=== PATIENT | female | born 1950 | race Hispanic/Latino ===

== ENCOUNTER → 2017-04-16 | Outpatient (CLI) | payer OTHER | END | disposition home or self-care (01) | LOC: SHCH 08:27 | PROVIDERS: ATTEND Internal Medicine Cardiovascular Disease | DX: I42.9 Cardiomyopathy, unspecified (principal) | CPT/HCPCS: 93306 ==

== ENCOUNTER 2022-01-14 15:10 | Emergency (ER) | payer OTHER ==
[~2022-01-14] VITALS: Ht 160 cm; Wt 77.1 kg
[2022-01-14] MEDS ORDERED: ACET-66 PO (17:09)
[2022-01-14 17:27] LABS: APPEARANCE,URINE CLEAR (CLEAR); BILIRUBIN,URINE NEGATIVE (NEGATIVE); COLOR,URINE LIGHT-YELLOW (YELLOW); GLUCOSE, URINE (UA) NEGATIVE (NEGATIVE); KETONES,URINE NEGATIVE (NEGATIVE); LEUKOCYTE ESTERASE ,URINE 75 Leu/uL (NEGATIVE); NITRATE,URINE NEGATIVE (NEGATIVE); OCCULT BLOOD,URINE NEGATIVE (NEGATIVE); PH,URINE 6.5 (5.0-8.0); PROTEIN,URINE NEGATIVE (NEGATIVE); UROBILINOGEN,URINE 0.2 mg/dL (0.2-1.0)
[2022-01-14 17:38] LABS: BACTERIA,URINE FEW /HPF (None Seen); MUCUS,URINE RARE LPF (None Seen); SQUAMOUS EPITHELIAL CELL,UR RARE /HPF (0-2); WBC,URINE 26-50 /HPF (0-1)
[2022-01-14] MEDS ORDERED: CEPH500B PO (17:40)
[2022-01-14 17:55] VITALS: BP 138/71
== END 2022-01-14 17:56 | disposition home or self-care (01) ==
LOC: EDH 15:10
DX: R51.9 Headache, unspecified (principal); M25.511 Pain in right shoulder; E78.00 Pure hypercholesterolemia, unspecified; Z20.822 Contact with and (suspected) exposure to COVID-19; Z86.73 Personal history of transient ischemic attack (TIA), and cerebral infarction without residual deficits; W01.0XXA Fall on same level from slipping, tripping and stumbling without subsequent striking against object, initial encounter; Y93.89 Activity, other specified; Y92.89 Other specified places as the place of occurrence of the external cause; Y99.8 Other external cause status
CPT/HCPCS: 99285; 70450; 87635; 87088; 87880; 87804 ×2; 81001; 73030; 72125; C9803

== ENCOUNTER → 2022-05-07 | Outpatient (CLI) | payer OTHER ==
[~2022-05-07] MED LIST: ACET-66 PO; CEPH500B PO
[2022-05-07 13:05] LABS: CREATININE 0.8 mg/dL (0.5-1.5); POTASSIUM 4.4 mmol/L (3.5-5.1)
== END | disposition home or self-care (01) ==
LOC: LAB 09:05
PROVIDERS: ATTEND Internal Medicine Cardiovascular Disease
DX: I10 Essential (primary) hypertension (principal)
CPT/HCPCS: 36415; 80048

== ENCOUNTER → 2022-05-28 | Outpatient (CLI) | payer OTHER | END | disposition home or self-care (01) | LOC: RAH 11:03 | PROVIDERS: ATTEND Family Medicine | DX: I65.22 Occlusion and stenosis of left carotid artery (principal); Z86.73 Personal history of transient ischemic attack (TIA), and cerebral infarction without residual deficits | CPT/HCPCS: 93880 ==

== ENCOUNTER → 2022-06-05 | Outpatient (CLI) | payer OTHER | END | disposition home or self-care (01) | LOC: SHCH 08:35 | PROVIDERS: ATTEND Internal Medicine Cardiovascular Disease | DX: I11.9 Hypertensive heart disease without heart failure (principal); R07.9 Chest pain, unspecified; R06.09 Other forms of dyspnea; R42 Dizziness and giddiness; E78.5 Hyperlipidemia, unspecified; Z95.810 Presence of automatic (implantable) cardiac defibrillator | CPT/HCPCS: 93306 ==

== ENCOUNTER 2023-01-01 19:36 | Emergency (ER) | payer OTHER ==
[~2023-01-01] VITALS: Ht 160 cm; Wt 78.0 kg
[2023-01-01] MEDS ORDERED: LIDO700A30 TP (22:07)
[2023-01-01] MEDS ORDERED: MELO5CAP3 PO (22:07)
[2023-01-01] MEDS ORDERED: ACET-2893 PO (22:08)
[2023-01-01] MEDS ORDERED: KETOROLAC 15MG/ML VIAL (15MG/ML) IM ONE (22:30)
[2023-01-01] MEDS ORDERED: LIDOCAINE 4% ADH..PATCH TP ONE ×2 (22:37→23:00)
[2023-01-01 22:45] VITALS: BP 124/75; PULSE 69; RESP 16; O2SAT 98
== END 2023-01-01 22:50 | disposition home or self-care (01) ==
LOC: EDH 19:36
DX: M19.072 Primary osteoarthritis, left ankle and foot (principal); M77.9 Enthesopathy, unspecified; E78.00 Pure hypercholesterolemia, unspecified; I10 Essential (primary) hypertension; Z79.1 Long term (current) use of non-steroidal anti-inflammatories (NSAID); Z86.73 Personal history of transient ischemic attack (TIA), and cerebral infarction without residual deficits; Z95.810 Presence of automatic (implantable) cardiac defibrillator
CPT/HCPCS: 99283; 73610; 96372; J1885

== ENCOUNTER → 2024-11-21 | Outpatient (CLI) | payer OTHER ==
[~2024-11-21] MED LIST changes: +ACET-3797 PO; +LIDO700A30 TP; +MELO5CAP3 PO; +PERFLUTREN PROTEIN-A MICROSPHR 0.22 MG/ML VIAL IV ONE
--- NOTE | 2024-11-21 22:32 | HMCSR ---
APPROVED REPORT EXAM: Two-dimensional and M-mode echocardiogram with Doppler and color Doppler with contrast INDICATION ICD: I10.0 Essential (primary) Hypertension, I42.9, I49.3 Contrast Details Agent/Amount Used: Optison 3mL 2D Dimensions RVDd3.4 cmLVEF(%)50.1 (>50%)LVED Vol(simp.)170.0 mL IVSd0.6 (0.7-1.1cm)FS(%)25 %LVES Vol(simp.)84.0 mL LVDd4.8 (3.8-5.6cm)LA (2D)3.8 (1.6-4.0cm)LVEF(%, simp.)51 % PWd0.9 (0.7-1.1cm)Ao Root(2D)2.8 (2.0-3.7cm)LA ESV INDEX (BP)31.53 mL/m2 IVSs0.9 cmLVOT diam2.1 (1.8-2.4cm) LVDs3.6 (2.5-4.0cm) PWs1.2 cm M-Mode Dimensions EPSS0.9 cm LA (MM)4.2 (1.6-4.0cm) Ao Root(MM)2.8 (2.0-3.7cm) Aortic Valve AoV Vmax1.1 m/Nina Peak GR5.1 mmHgLVOT Vmax0.9 m/s AoV VTI0.3 mAo Mean GR3.1 mmHgLVOT VTI0.20 m DANTE (VMAX)2.71 cm2AVA (VTI) 2.5 cm2 Mitral Valve MV E Vmax67.6 cm/sDECEL Mnqp744 ms MV A Vmax69.9 cm/sP 1/2 T60 ms E/A ratio1.0MVA (PHT)3.7 cm2 TDI E/E' Khgjln06.4E/E' Lateral8.5 Medial E' Peak V5.93 cm/sLateral E' Peak V7.92 cm/s Pulmonary Valve PV Vmax0.7 m/sPV VTI0.16 mPV Mean GR1.0 mmHg PV Peak GR1.8 mmHg Tricuspid Valve TR Vmax2.4 m/sRAP (EST) 3 dqGhWXGQ53.7 mmHg TR Peak GR24.7 mmHg Left Ventricle The left ventricle is normal size. 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 Echo c ontrast agent shows slow swirling and trabeculations at apex, with increased risk of thromboembolizat ion, consider lifelong anticoagulation. There is normal left ventricular wall thickness. LVEF is mild moderately depressed at 40%. Indeterminate diastolic dysfunction. Right Ventricle The right ventricle is normal size. The right ventricular systolic function is normal. Device lead is present in the right ventricle. Atria The left atrium size is normal. The right atrium size is normal. Aortic Valve Aortic valve is trileaflet and opens well. Trace of aortic regurgitation is present. There is no aort ic valvular stenosis. Mitral Valve The mitral valve is normal in structure. There is mild mitral valve regurgitation noted. There is no mitral valve stenosis. Tricuspid Valve The tricuspid valve is normal in structure. There is mild tricuspid valve regurgitation noted. Pulmonic Valve The pulmonary valve is normal in structure. There is no pulmonic valvular regurgitation. Great Vessels The aortic root is normal in size. The IVC is normal in size and collapses >50% with inspiration. Pericardium There is no pericardial effusion. Other Information Quality : Adequate Conclusion Device lead is present in the right ventricle. There is normal left ventricular wall thickness. LVEF is mild to moderately depressed at 40%. 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 Echo contrast agent shows slow swirling and trabeculations at apex, with increased risk of thromboemb olization, consider lifelong anticoagulation. Aortic valve is trileaflet and opens well. There is mild mitral valve regurgitation noted. There is no pericardial effusion.
== END | disposition home or self-care (01) ==
LOC: RAH 13:08
PROVIDERS: ATTEND Internal Medicine Cardiovascular Disease
DX: I08.1 Rheumatic disorders of both mitral and tricuspid valves (principal); I10 Essential (primary) hypertension; I42.9 Cardiomyopathy, unspecified; I49.3 Ventricular premature depolarization
CPT/HCPCS: C8929; Q9956